=== PATIENT | male | born 1975 | race Two or more races ===

== ENCOUNTER 2019-10-27 17:47 | Emergency (ER) | payer BC ==
[~2019-10-27] VITALS: Ht 182.9 cm; Wt 99.0 kg
[2019-10-27 17:54] VITALS: BP 160/91; Ht 182.9 cm; Wt 99.0 kg
== END 2019-10-27 20:40 | disposition home or self-care (01) ==
LOC: ED 17:47
DX: S43.402A Unspecified sprain of left shoulder joint, initial encounter (principal); Z88.6 Allergy status to analgesic agent; V00.131A Fall from skateboard, initial encounter; Y93.51 Activity, roller skating (inline) and skateboarding; Y92.89 Other specified places as the place of occurrence of the external cause; Y99.8 Other external cause status